=== PATIENT | female | born 1990 | race Caucasian/White ===

== ENCOUNTER → 2022-08-18 19:56 | Observation (INO) ==
[2022-08-18 18:25] LABS: Basophils % 0.2 %; Eosinophils # 0.1 K/mcL (0.0-0.6); Eosinophils % 0.7 %; Hematocrit 37.8 % (35.3-44.9); Hemoglobin 12.3 g/dL (11.5-15.4); Immature Granulocytes % 0.5 % (0-4); Lymphocytes # 1.5 K/mcL (0.6-4.6); Lymphocytes % 13.5 %; Mean Corpuscular HGB Conc 32.5 g/dL (31.6-35.5); Mean Corpuscular Hemoglobin 26.7 pg (28.0-33.3); Mean Platelet Volume 10.9 fL (9.4-12.4); Monocytes # 0.7 K/mcL (0.0-1.3); Neutrophils # 8.6 K/mcL (1.6-8.9); Platelet Count 226 K/mcL (140-400); Red Blood Count 4.61 M/mcL (3.82-4.97); Red Cell Distribution Width 17.5 % (11.5-14.5); Segmented Neutrophils % 79.1 %; White Blood Count 10.8 K/mcL (4.3-11.1)
[~2022-08-18 19:56] MED LIST: Ringers Solution, Lactated 1,000 ML IVC ONE
== END | disposition home or self-care (01) ==
LOC: 1NENULAB
PROVIDERS: ADMIT Obstetrics & Gynecology; ATTEND Obstetrics & Gynecology

== ENCOUNTER → 2022-08-21 17:22 | Observation (INO) ==
[~2022-08-21 17:22] MED LIST changes: +Ringers Solution, Lactated 1,000 ML ONE
== END | disposition home or self-care (01) ==
LOC: 1NENULAB
PROVIDERS: ADMIT Advanced Practice Midwife; ATTEND Advanced Practice Midwife

== ENCOUNTER 2022-08-26 05:07 | Inpatient (IN) ==
[2022-08-26] MEDS ORDERED: Clindamycin 900 MG/50 ML 900 MG/50 ML IV.SOLN IVPB ONE (05:26)
[2022-08-26] MEDS ORDERED: GENTAMICIN IVPB ONE (05:26)
[2022-08-26] MEDS ORDERED: OXYTOCIN/RINGERS LACTATE 10 UNIT/166.6 ML BAG IVC ONE (05:26)
[2022-08-26] MEDS ORDERED: Famotidine 20 MG/2 ML VIAL IVP ONE (05:26)
[2022-08-26] MEDS ORDERED: SODIUM CHLORIDE 0.9% IVPB ONE (05:26)
[2022-08-26] MEDS ORDERED: Ringers Solution, Lactated 1,000 ML IVC ONE (05:26)
[2022-08-26] MEDS ORDERED: Ringers Solution, Lactated 1,000 ML IVC SCH ×2 (05:30→12:27)
[2022-08-26] MEDS ORDERED: Oxytocin 30 UNIT/503 ML BAG IVC SCH ×2 (05:30→12:27)
[2022-08-26] MEDS ORDERED: Flu Vac QV 22-23 (6MOS UP)/PF 0.5 ML SYRINGE IM ONE (05:37)
[2022-08-26 05:53] LABS: Basophils % 0.2 %; Eosinophils # 0.1 K/mcL (0.0-0.6); Eosinophils % 0.8 %; Hematocrit 37.3 % (35.3-44.9); Hemoglobin 12.3 g/dL (11.5-15.4); Immature Granulocytes % 0.4 % (0-4); Lymphocytes # 1.5 K/mcL (0.6-4.6); Mean Corpuscular Hemoglobin 26.7 pg (28.0-33.3); Mean Corpuscular Volume 81.1 fL (83.0-100.0); Mean Platelet Volume 11.2 fL (9.4-12.4); Monocytes # 0.7 K/mcL (0.0-1.3); Neutrophils # 8.2 K/mcL (1.6-8.9); Platelet Count 248 K/mcL (140-400); Red Cell Distribution Width 17.2 % (11.5-14.5); Segmented Neutrophils % 77.6 %; White Blood Count 10.6 K/mcL (4.3-11.1)
[2022-08-26] MEDS ORDERED: *HR* Midazolam HCl 2 MG/2 ML VIAL ONE (07:08)
[2022-08-26] MEDS ORDERED: *HR* Morphine Sulfate/PF 10 MG/10 ML AMPUL ONE (07:08)
[2022-08-26] MEDS ORDERED: *HR* FentaNYL (PF) 100 MCG/2 ML VIAL ONE (07:08)
[2022-08-26] MEDS ORDERED: Ondansetron 4 MG/2 ML VIAL ONE (07:11)
[2022-08-26] MEDS ORDERED: *HR* OxyCODONE Immed Rel 5 MG TABLET PO PRN (07:21)
[2022-08-26] MEDS ORDERED: Promethazine 6.25 MG in Water for inj. (sterile) 20 ML IVPB PRN (07:21)
[2022-08-26] MEDS ORDERED: *HR* FentaNYL (PF) 100 MCG/2 ML VIAL IVP PRN (07:21)
[2022-08-26] MEDS ORDERED: *HR* Nalbuphine 10 MG/ML AMPUL IV PRN (07:23)
[2022-08-26] MEDS ORDERED: EPHEDrine sulfate 50 MG/10 ML VIAL IVP ONE (08:14)
[2022-08-26] MEDS ORDERED: *HR* Phenylephrine 10 MG/ML VIAL ONE (08:28)
[2022-08-26] MEDS ORDERED: 0.9 % Sodium Chloride 1,000 ML ONE (10:16)
[2022-08-26] MEDS ORDERED: Ondansetron 4 MG/2 ML VIAL IVP PRN (12:27)
[2022-08-26] MEDS ORDERED: Acetaminophen 325 MG TABLET PO SCH (12:27)
[2022-08-26] MEDS ORDERED: Metoclopramide 10 MG/2 ML VIAL IVP PRN (12:27)
[2022-08-26] MEDS ORDERED: Rho Immune Globulin 1,500 UNIT SYRINGE IM ONE (12:27)
[2022-08-26 14:06] LABS: Amphetamine Screen,Urine Negative ng/mL (Cutoff=1000); Barbiturate Screen,Urine Negative ng/mL (Cutoff=200); Benzodiazepines Screen,Urine Negative ng/mL (Cutoff=200); Cannabinoid Screen,Urine Negative ng/mL (Cutoff = 50); Cocaine Screen,Urine Negative ng/mL (Cutoff= 300); Opiate Screen,Urine Negative ng/mL (Cutoff=300); Phencyclidine Screen,Urine Negative ng/mL (Cutoff=25)
[2022-08-26] MEDS: Ibuprofen 600 MG TABLET PO SCH ×2 (15:17→21:16)
[2022-08-26] MEDS: Simethicone 80 MG TAB.CHEW PO PRN (21:15)
[2022-08-26] MEDS: Gabapentin 300 MG CAPSULE PO SCH (21:16)
[2022-08-26] MEDS: *HR* Enoxaparin 60 MG/0.6 ML SYRINGE SQ SCH (23:19)
[2022-08-27] MEDS: Ibuprofen 600 MG TABLET PO SCH ×3 (03:15→17:48)
[2022-08-27 05:21] LABS: Basophils % 0.1 %; Eosinophils # 0.1 K/mcL (0.0-0.6); Eosinophils % 0.7 %; Hematocrit 33.7 % (35.3-44.9); Hemoglobin 10.9 g/dL (11.5-15.4); Immature Granulocytes % 0.3 % (0-4); Lymphocytes # 1.1 K/mcL (0.6-4.6); Lymphocytes % 10.6 %; Mean Corpuscular HGB Conc 32.3 g/dL (31.6-35.5); Mean Corpuscular Hemoglobin 26.5 pg (28.0-33.3); Monocytes # 0.6 K/mcL (0.0-1.3); Monocytes % 5.9 %; Neutrophils # 8.5 K/mcL (1.6-8.9); Platelet Count 194 K/mcL (140-400); Red Blood Count 4.11 M/mcL (3.82-4.97); Red Cell Distribution Width 17.4 % (11.5-14.5); Segmented Neutrophils % 82.4 %; White Blood Count 10.3 K/mcL (4.3-11.1)
[2022-08-27] MEDS: *HR* OxyCODONE Immed Rel 5 MG TABLET PO PRN (06:04)
[2022-08-27] MEDS: Gabapentin 300 MG CAPSULE PO SCH (09:35)
[2022-08-27] MEDS: Prenatal Vit/FA 1 EACH TABLET PO SCH (09:35)
[2022-08-27] MEDS: *HR* Enoxaparin 60 MG/0.6 ML SYRINGE SQ SCH ×2 (09:38→20:29)
[2022-08-27] MEDS: Simethicone 80 MG TAB.CHEW PO PRN ×2 (10:07→17:49)
[2022-08-27] MEDS: Sennosides 8.6 MG TABLET PO PRN (17:48)
[2022-08-27] MEDS ORDERED: Lanolin 7 G OINT...G. TP PRN (19:57)
[2022-08-27 20:51] VITALS: O2SAT 99
[2022-08-28] MEDS: Gabapentin 300 MG CAPSULE PO SCH ×2 (00:20→08:27)
[2022-08-28] MEDS: Ibuprofen 600 MG TABLET PO SCH ×2 (00:20→05:41)
[2022-08-28] MEDS: *HR* OxyCODONE Immed Rel 5 MG TABLET PO PRN ×2 (02:58→08:28)
[2022-08-28 07:36] VITALS: BP 125/78; PULSE 81; TEMP 97.6
[2022-08-28] MEDS: Sennosides 8.6 MG TABLET PO PRN (08:27)
[2022-08-28] MEDS: Simethicone 80 MG TAB.CHEW PO PRN (08:27)
[2022-08-28] MEDS: Prenatal Vit/FA 1 EACH TABLET PO SCH (08:28)
[2022-08-28] MEDS: *HR* Enoxaparin 60 MG/0.6 ML SYRINGE SQ SCH (08:29)
== END 2022-08-28 14:04 | disposition home or self-care (01) | DRG 784 ==
LOC: 1NENULAB 05:07 → 1NENUOBS 11:41
PROVIDERS: ADMIT Student in an Organized Health Care Education/Training Program; ATTEND Student in an Organized Health Care Education/Training Program